=== PATIENT | male | born 1975 | race Caucasian/White ===

== ENCOUNTER 2017-09-29 22:32 | Emergency (ER) | payer OTHER ==
[~2017-09-29] VITALS: Ht 180.3 cm; Wt 96.2 kg
[~2017-09-29 22:32] MED LIST: ANAPROX DS550 MG PO; CLEOCIN HCL150 MG PO; CLEOCIN HCL300 MG PO; CLINDAMYCIN HC300 MG PO; DAYPRO600 M1 PO; HYDROCODONE BIT1 T11 PO; IBU800 MG PO; KEFLEX500 MG PO; MOBIC15 MG PO; MOTRIN800 MG PO; Motrin,Rufen800 MG PO; NKHM; PEN-VEE K500 MG PO; PENICILLIN VK500 MG PO; PREDNISONE10 MG PO; ROBAXIN750 MG PO; ROBITUSSIN DM 105 ML PO; TRAMADOL HCL50 MG PO; TRIMOX500 MG PO; VENTOLIN H0.09 MG/AC INH; VICODIN 5/500 505 MG PO; WYMOX500 MG PO
[2017-09-29] MEDS ORDERED: Motrin,Rufen800 MG PO (23:31)
[2017-09-29] MEDS ORDERED: CLINDAMYCIN HC300 MG PO (23:31)
== END 2017-09-29 23:36 | disposition home or self-care (01) ==
LOC: ED 22:32
DX: K02.9 Dental caries, unspecified (principal); K04.01 Reversible pulpitis

== ENCOUNTER 2017-11-21 17:27 | Emergency (ER) | payer SELFPAY ==
[~2017-11-21] VITALS: Ht 180.3 cm; Wt 94.3 kg
[2017-11-21] MEDS ORDERED: NAPROSYN500 MG PO (18:05)
[2017-11-21] MEDS ORDERED: CLINDAMYCIN HC300 MG PO (18:05)
== END 2017-11-21 18:30 | disposition home or self-care (01) ==
LOC: ED 17:27
DX: K04.7 Periapical abscess without sinus (principal); F17.200 Nicotine dependence, unspecified, uncomplicated; Z79.899 Other long term (current) drug therapy

== ENCOUNTER 2017-12-14 01:28 | Emergency (ER) | payer SELFPAY ==
[~2017-12-14] VITALS: Ht 180.3 cm; Wt 94.3 kg
[~2017-12-14 01:28] MED LIST changes: +NAPROSYN500 MG PO
[2017-12-14] MEDS ORDERED: IBUPROFEN600 MG PO (02:07)
[2017-12-14] MEDS ORDERED: AMOXICILLIN500 M2 PO (02:07)
== END 2017-12-14 02:18 | disposition home or self-care (01) ==
LOC: ED 01:28
DX: K02.9 Dental caries, unspecified (principal)

== ENCOUNTER 2018-04-25 00:56 | Emergency (ER) | payer OTHER ==
[~2018-04-25] VITALS: Ht 180.3 cm; Wt 90.7 kg
[~2018-04-25 00:56] MED LIST changes: +AMOXICILLIN500 M2 PO; +IBUPROFEN600 MG PO; +Veetids,V-Cill500 MG PO
== END 2018-04-25 01:45 | disposition home or self-care (01) ==
LOC: ED 00:56
DX: K08.89 Other specified disorders of teeth and supporting structures (principal); J40 Bronchitis, not specified as acute or chronic

== ENCOUNTER 2019-07-11 01:26 | Emergency (ER) | payer OTHER ==
[~2019-07-11] VITALS: Wt 103.4 kg
[~2019-07-11 01:26] MED LIST changes: +ZOFRAN4 MG PO
[2019-07-11] MEDS ORDERED: PENICILLIN-VK500 MG PO (01:52)
== END 2019-07-11 02:14 | disposition home or self-care (01) ==
LOC: ED 01:26
DX: K02.9 Dental caries, unspecified (principal)

== ENCOUNTER 2019-09-11 21:16 | Emergency (ER) | payer OTHER ==
[~2019-09-11] VITALS: Ht 180.3 cm; Wt 105.2 kg
[~2019-09-11 21:16] MED LIST changes: +PENICILLIN-VK500 MG PO
[2019-09-11] MEDS ORDERED: CLINDAMYCIN HC300 MG PO (21:25)
== END 2019-09-11 21:35 | disposition home or self-care (01) ==
LOC: ED 21:16
DX: K08.89 Other specified disorders of teeth and supporting structures (principal)

== ENCOUNTER 2019-12-18 21:34 | Inpatient (IN) | payer OTHER ==
[~2019-12-18] VITALS: Ht 180.3 cm; Wt 104.4 kg
[2019-12-18 21:39] VITALS: BP 149/98
[2019-12-18 22:03] LABS: BASO # 0.1 10*3/uL (0.0-0.1); BASO % 1.1 % (0.0-1.0); EOS # 0.4 10*3/uL (0.0-0.4); EOS % 4.3 % (1.0-4.0); HEMATOCRIT 50.6 % (42.0-52.0); LYMPH # 2.7 10*3/uL (1.3-4.4); LYMPH % 27.2 % (27.0-41.0); MEAN CELL VOLUME 89.7 fl (80.0-94.0); MEAN CORPUSCULAR HGB 29.8 pg (27.0-31.0); MEAN CORPUSCULAR HGB CONC 33.2 g/dl (33.0-37.0); MONO # 1.3 10*3/uL (0.1-1.0); MONO % 12.8 % (3.0-9.0); NEUT # 5.2 10*3/uL (2.3-7.9); NEUT % 52.3 % (47.0-73.0); PLATELET COUNT AUTOMATED 248 10*3/uL (130-400); RED BLOOD COUNT 5.64 10*6/uL (4.50-5.90); RED CELL DISTRI WIDTH 12.9 % (0-14.5)
[2019-12-18 22:10] LABS: ACT PARTIAL THROMBO TIME 28.4 SECONDS (20.0-32.1)
[2019-12-18 22:17] LABS: ALBUMIN 3.6 gm/dl (3.1-4.5); ALKALINE PHOSPHATASE 68 U/L (45-117); BUN 9 mg/dl (7-24); CHLORIDE 108 mmol/L (98-107); CREATININE 1.06 mg/dL (0.70-1.30); POTASSIUM 3.7 mmol/L (3.5-5.1); SGOT/AST 10 IU/L (3-35); SGPT/ALT 21 U/L (12-78); SODIUM 139 mmol/L (136-145); TOTAL PROTEIN 7.2 gm/dL (6.4-8.2); TROPONIN I < 0.015 ng/ml (<0.045)
[2019-12-18 23:00] VITALS: BP 126/78
--- NOTE | 2019-12-18 23:34 | NUR ---
PT RESTING QUIETLY ON STRETCHER, DENIES NEEDS AT THIS TIME. WILL CONTINUE TO MONITOR.
[2019-12-19 00:20] VITALS: BP 157/110
--- NOTE | 2019-12-19 00:20 | NUR ---
Time: 19 A 44 year old MALE admitted to [facility] under services of KATELYN VILLALTA DO. Pt. arrived via bed from ER. Chief complaint: CHEST PAIN. PATIENT ORIENTED TO THE FLOOR [facility]. PATIENT A&OX3 AND AMBULATORY PATIENT FORMS REVIEWED AND COMPLETED, CALL LIGHT SYSTEM DEMONSTRATED. MICHELLE WEBER
--- NOTE | 2019-12-19 00:25 | NUR ---
DR. MARTINEZ IN TO SEE PATIENT AND DISCUSS PLAN OF CARE. MED REC UP-TO-DATE.
--- NOTE | 2019-12-19 00:28 | NUR ---
REPORT PHONED TO 4TH FLOOR NURSE AT 0015.
--- NOTE | 2019-12-19 00:34 | NUR ---
PT TRANSPORTED TO 4TH FLOOR BY HERMINIO FULTON.
[2019-12-19 04:00] VITALS: BP 113/67
[2019-12-19 04:03] LABS: BASO # 0.1 10*3/uL (0.0-0.1); BASO % 1.3 % (0.0-1.0); EOS # 0.5 10*3/uL (0.0-0.4); HEMATOCRIT 48.8 % (42.0-52.0); LYMPH % 31.4 % (27.0-41.0); MEAN CELL VOLUME 89.7 fl (80.0-94.0); MEAN CORPUSCULAR HGB 29.6 pg (27.0-31.0); MEAN PLATELET VOLUME 10.3 fl (9.6-12.3); MONO # 1.1 10*3/uL (0.1-1.0); MONO % 11.3 % (3.0-9.0); NEUT # 4.6 10*3/uL (2.3-7.9); NEUT % 48.5 % (47.0-73.0); PLATELET COUNT AUTOMATED 220 10*3/uL (130-400); RED BLOOD COUNT 5.44 10*6/uL (4.50-5.90); RED CELL DISTRI WIDTH 13.1 % (0-14.5); WHITE BLOOD COUNT 9.5 10*3/uL (4.8-10.8)
[2019-12-19 04:19] LABS: BUN 9 mg/dl (7-24); CHLORIDE 109 mmol/L (98-107); CREATININE 0.98 mg/dL (0.70-1.30); POTASSIUM 3.7 mmol/L (3.5-5.1); SODIUM 139 mmol/L (136-145)
[2019-12-19 04:24] LABS: CHOLESTEROL 160 mg/dL (<200); FREE T4 0.99 ng/dl (0.76-1.46); HDL CHOLESTEROL 34 mg/dl (40-60); LDL CHOLESTEROL 94 mg/dL (9-159); TRIGLYCERIDES 158 mg/dl (<150); VLDL CHOLESTEROL 32 mg/dL (6-40)
[2019-12-19 04:31] LABS: THYROID STIM HORMONE (HS) 0.992 uIU/ml (0.358-4.75)
[2019-12-19 07:58] LABS: VITAMIN D, 25-HYDROXY 23.5 ng/mL (30-100)
[2019-12-19 08:00] VITALS: BP 160/96
--- NOTE | 2019-12-19 08:35 | NUR ---
PATIENT DISCHARGED TO HOME. IV AND SPECIMEN TRANSPORTER DISCONTINUED. DISCHARGE INSTRUCTIONS GIVEN AND REVIEWED WITH PATIENT. PATIENT GIVEN CARD FOR RESIDENCY CLINIC DUE TO HE HAS NO FAMILY DOCTOR. INSTRUCTED TO CALL FOR AN APPOINTMENT TO FOLLOW UP WITHIN ONE WEEK.
== END 2019-12-19 08:35 | disposition home or self-care (01) | DRG 203 ==
LOC: ED 21:34 → EDHOLD 23:53 → ICCU 12-19 00:08
PROVIDERS: Emergency Medicine; Internal Medicine; ADMIT Family Medicine
DX: M94.0 Chondrocostal junction syndrome [Tietze] (principal); I24.9 Acute ischemic heart disease, unspecified; I10 Essential (primary) hypertension; E83.41 Hypermagnesemia; K02.9 Dental caries, unspecified; E87.8 Other disorders of electrolyte and fluid balance, not elsewhere classified; Z83.3 Family history of diabetes mellitus; Z84.1 Family history of disorders of kidney and ureter; F41.9 Anxiety disorder, unspecified; K21.9 Gastro-esophageal reflux disease without esophagitis

== ENCOUNTER 2020-08-13 07:21 | Emergency (ER) | payer OTHER ==
[~2020-08-13] VITALS: Ht 180.3 cm; Wt 104.3 kg
== END 2020-08-13 07:41 | disposition home or self-care (01) ==
LOC: ED 07:21
DX: R50.9 Fever, unspecified (principal); Z20.828 Contact with and (suspected) exposure to other viral communicable diseases

== ENCOUNTER 2021-01-07 23:33 | Emergency (ER) | payer OTHER ==
[~2021-01-07] VITALS: Ht 180.3 cm; Wt 103.4 kg
[2021-01-08] MEDS ORDERED: AUGMENTIN 875875 MG PO (02:23)
== END 2021-01-08 02:47 | disposition home or self-care (01) ==
LOC: ED 23:33
DX: J06.9 Acute upper respiratory infection, unspecified (principal); J32.8 Other chronic sinusitis; F17.200 Nicotine dependence, unspecified, uncomplicated

== ENCOUNTER 2021-04-08 20:26 | Emergency (ER) | payer SELFPAY ==
[~2021-04-08] VITALS: Ht 180.3 cm; Wt 99.8 kg
[~2021-04-08 20:26] MED LIST changes: +AUGMENTIN 875875 MG PO
[2021-04-08] MEDS ORDERED: ANTIFUNGAL113 GM T (23:42)
== END 2021-04-08 23:51 | disposition home or self-care (01) ==
LOC: ED 20:26
DX: B35.6 Tinea cruris (principal); B35.3 Tinea pedis

== ENCOUNTER 2021-07-06 19:26 | Emergency (ER) | payer SELFPAY ==
[~2021-07-06 19:26] MED LIST changes: +ANTIFUNGAL113 GM T
[2021-07-07] MEDS ORDERED: ZOFRAN4 MG PO (02:55)
== END 2021-07-07 03:12 | disposition home or self-care (01) ==
LOC: ED 19:26
DX: B34.9 Viral infection, unspecified (principal); Z20.822 Contact with and (suspected) exposure to COVID-19

== ENCOUNTER 2021-07-22 20:18 | Emergency (ER) | payer SELFPAY ==
[2021-07-22] MEDS ORDERED: METHOCARBAMOL500 M1 PO (23:14)
[2021-07-22] MEDS ORDERED: NAPROXEN250 MG PO (23:14)
== END 2021-07-22 23:34 | disposition home or self-care (01) ==
LOC: ED 20:18
DX: S39.012A Strain of muscle, fascia and tendon of lower back, initial encounter (principal); V89.2XXA Person injured in unspecified motor-vehicle accident, traffic, initial encounter; Y93.89 Activity, other specified; Y92.89 Other specified places as the place of occurrence of the external cause; Y99.8 Other external cause status